=== PATIENT | female | born 1990 | race Caucasian/White ===

== ENCOUNTER 2020-09-23 13:51 | Outpatient (CLI) | payer OTHER | END 2020-09-23 13:52 | disposition home or self-care (01) | LOC: BICULT 13:51 | PROVIDERS: ATTEND Family Medicine | DX: O09.892 Supervision of other high risk pregnancies, second trimester (principal); Z3A.21 21 weeks gestation of pregnancy | CPT/HCPCS: 76805 ==

== ENCOUNTER 2022-10-15 08:43 | Outpatient (CLI) | payer OTHER | END 2022-10-15 08:44 | disposition home or self-care (01) | LOC: BICMAMMO 08:43 | PROVIDERS: ATTEND Family Medicine | DX: N61.0 Mastitis without abscess (principal); N64.4 Mastodynia | CPT/HCPCS: 77066; G0279 ==